=== PATIENT | female | born 1980 | race Caucasian/White ===

== ENCOUNTER 2023-12-01 05:20 | Emergency (ER) | payer OTHER, SELFPAY ==
[2023-12-01] VITALS (19 sets, daily range): BP systolic 130–184; BP diastolic 72–89; PULSE 61–88; RESP 13–24; TEMP 36.6; O2SAT 97–100
--- NOTE | 2023-12-01 05:15 | RT.EKG_ITS ---
APPROVED REPORT Exam: Resting ECG Reason for Exam: C/P Patient Location: E HR:76 bpm ECG Measurements Heart Rate 76 AXIS NM 153 P 59 QRSd 85 QRS 0 QT 405 T [id number] QTc 455 Conclusion Sinus rhythm...normal P axis, V-rate 60- [address] segment or T wave abnormalities to suggest occlusive RI
--- OUTSIDE RECORDS SUMMARY | 2023-12-01 05:35 | XMS_ITS | Clinical Summary ---
Author Organization [facility] Address [phone] [place] [address] Care Team Providers Care Director Of Nursing Name Role Phone Agnieszka Jimenes NP Primary Care Provider [phone] Social History Tobacco Use Types Packs/Day Years Used Date Smoking Tobacco: Never Assessed Education Answer Date Recorded Are you interested in more education? Not on amando e 06/16/2022 Are you concerned about learning? Not on file 06/16/2022 No 06/16/2022 No 06/16/2022 Digital Access Answer Date Recorded No 07/15/2022 No 07/15/2022 No 07/15/2022 Reliable internet access at home? Not on file 07/15/2022 Device with a working camera? Not on file Sex and Gender Information Value Date Recorded Sex Assigned at Female 12/08/2021 5:00 PM EDT Gender Identity Female 12/08/2021 5:00 PM EDT Sexual Orientation Straight 12/08/2021 5: 00 PM EDT Plan of Treatment Health Maintenance Due Date Last Done Comments Adult Td,Tdap Booster 1981 DEPRESSION SCREENING 1994 SMOKING Hx and SMOKELESS TOB ACCO SCREENING 1994 HEPATITIS C SCREENING 10/24/1999 HIV ONE-TIME SCREENING (18-6 5 YEARS) 10/24/1999 PAP SMEAR 2002 MAMMOGRAM 2021 INFLUENZA VACCINE (#1) 2023 COVID-19 VACCINE (2023-2 5 season) 2023 HIB VACCINES Aged Out No longer eligi ble based on patient's age to complete this topic MENINGOCOCCAL VACCINES (ACWY) Aged Out No longer eligible based on patient's age to complete this topic PNEUMOCOCCAL VACCINES (0-64 years) Aged Out No longer eligible based on patient's age to complete this topic Medical Devices Not on file [facility] And[facility] Silverio Personal/Family Self 1980 [address] [facility] And[place] Silverio Personal/Family Self 1980 [address] [facility] Andie Silverio Personal/Family Self [address] [place], [place] [address] Andie Silverio Personal/Family Self [address] [place] [address] [facility] [place] [address] Andie Silverio Personal/Family Self [address] [place] [address] [facility] Care Teams Director Of Nursing Relationship Specialty Start Date End Date Agnieszka Jimenes NP [address] [place] [address] PCP - General Family Medicine 12/08/21 Additional Source Comments The information contained in this document represents components of the legal health record. It is not the complete legal health record.[facility]
--- OUTSIDE RECORDS SUMMARY | 2023-12-01 05:35 | XMS_ITS | Encounter Summary ---
Author Organization [facility] Address [phone] [place] [address] Care Team Providers Care Contact Lens Molder Name Role Phone Agnieszka Jimenes DIE DESIGNER APPRENTICE Primary Care Provider [phone] Encounter Details Date Type Department Care Team ([facility] st Contact Info) Description 12/12/2021 Telephone [facility] Neurology at [address] [address] Lila Naidu [address] [place] [address] [email or web address] Social History Tobacco Use Types Packs/Day Years Used Date Smoking Tobacco: Never Assessed Sex and Gender Information Value Date Recorded Sex Assigned at Female 12/08/2021 5:00 PM EDT Gender Identity Female 12/08/2021 5:00 PM EDT Sexual Orientation Straight 12/08/2021 5: 00 PM EDT documented as of this encounter Progress Notes * Lila Naidu - 12/12/2021 12:58 PM EDT Clinical information/referral was received to Neurology and an attempt was made to reach out to thept to try and schedule. Lila Chen documented in this encounter Plan of Treatment Not on file documented as of this encounter Visit Diagnoses Not on filedocumented in this encounter Care Teams Contact Lens Molder Relationship Specialty Start Date End Date Agnieszka Jimenes NP [address] [place] [address] PCP - General Family Medicine 12/08/21 documented as of this encounter Additional Source Comments The information contained in this document represents components of the legal health record. It is not the complete legal health record.[facility]
--- OUTSIDE RECORDS SUMMARY | 2023-12-01 05:35 | XMS_ITS | Encounter Summary ---
Author Organization [facility] Address [phone] [place] [address] Care Team Providers Care Frame Runner Name Role Phone Agnieszka Jimenes NP Primary Care Provider [phone] Reason for Visit * Reason Onset Date Comments Appointment 04/18/2022 Encounter Details Date Type Department Care Team (Late st Contact Info) Description 04/18/2022 Telephone [facility] [address] [place] [address] Anayeli Edouard, RN [address] [place] [address] [email or web address] Appointment Social History Tobacco Use Types Packs/Day Years Used Date Smoking Tobacco: Never Assessed Sex and Gender Information Value Date Recorded Sex Assigned at Female 12/08/2021 5:00 PM EDT Gender Identity Female 12/08/2021 5:00 PM EDT Sexual Orientation Straight 12/08/2021 5: 00 PM EDT documented as of this encounter Progress Notes * Anayeli Franklin RN - 04/18/2022 4:13 PM EST Patient returned call. Identity confirmed. States she had appointment scheduled 04/23/22 at 10:00 butthere was no record of it in our system. Reports began with MS like symptom and was found to have white matter lesions. Has had follow up MRIs for years to monitor. 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 States that she never had known stroke symptoms. Reports MRI read stated that stroke had been previously noted, but she felt that this was not the case and it had not been noted before. Has MRI discs, verbalizes that she will bring them with her to appointment. Does not have [facility] Notes with details of MS work up, will have them sent to [facility] Neuro - fax number provided. Scheduled for appointment 06/07/2022 @ 15:00. Offered appointment on 05/10, patient declined due to scheduling conflict. Appointment details reviewed and confirmed including location, Andie verbalized understanding and was in agreement with the outlined plan. * Anayeli Franklin RN - 04/18/2022 3:49 PM EST Attempted to contact patient Andie Silverio at regarding neurology referral. There was no answer. Left voicemail requesting call back to . Please flag to this RN if callsback. Plan: Will follow up at a later date. Thank you, Anayeli Franklin BSN, RN, CNRN documented in this encounter Plan of Treatment Not on file documented as of this encounter Visit Diagnoses Not on filedocumented in this encounter Care Teams Frame Runner Relationship Specialty Start Date End Date Agnieszka Jimenes NP [address] [place] [address] PCP - General Family Medicine 12/08/21 documented as of this encounter Additional Source Comments The information contained in this document represents components of the legal health record. It is not the complete legal health record.[facility]
[2023-12-01 05:44] LABS: Abs Immature Grans 0.01 10^3/uL (0.0-0.06); Absolute Basophil Count 0.03 10^3/uL (0.0-0.2); Absolute Eosinophil Count 0.08 10^3/uL (0.0-0.7); Absolute Lymphocyte Count 2.16 10^3/uL (1.2-3.4); Absolute Monocyte Count 0.43 10^3/uL (0.1-0.8); Basophils % 0.5 %; Eosinophils % 1.3 %; HCT 41.3 % (36.0-46.0); HGB 13.6 g/dL (11.2-15.7); Immature Grans % 0.2 %; Lymphocytes % 34.2 %; MCH 30.8 pg (27.0-33.0); MCHC 32.9 % (32.0-36.0); MCV 94 fL (80-95); MPV 10.2 fL (8.0-11.0); Monocytes % 6.8 %; Platelet Count 210 10^3/uL (130-400); RBC 4.41 10^6/uL (3.93-5.22); RDW 12.2 % (11.7-14.6); RDW-SD 42.3 fL; WBC 6.31 10^3/uL (4.4-10.8)
--- NOTE | 2023-12-01 05:52 | DI.RAD_ITS ---
Exam(s) XR CHEST 2V PA LATERAL EXAM: XR CHEST 2V PA LATERAL CLINICAL HISTORY: chest pain. TECHNIQUE: 2D digital imaging was performed. COMPARISON: No exams were available for comparison FINDINGS: 2 views: Heart size is normal. The mediastinum is not widened. Lungs are clear. No infiltrates nor pleural effusions. IMPRESSION: No acute pulmonary findings. DATA REPOSITORY: RADIATION DOSE DELIVERED:
[2023-12-01 06:03] LABS: ALT 29 U/L (14-59); AST 25 U/L (15-37); Albumin 4.1 g/dL (3.4-5.0); Alkaline Phosphatase 66 U/L (46-116); Anion Gap 10.6 mmol/L (3-11); BUN 10 mg/dL (7-18); Bilirubin, Total 0.46 mg/dL (0.2-1.0); CO2 29.4 mmol/L (21.0-32.0); CREATININE 0.7 mg/dL (0.55-1.02); Chloride 103 mmol/L (98-107); Estimated GFR 110.67 (mL/min/1.73m2); Glucose 116 mg/dL (74-106); Lipase 26 U/L (16-77); Potassium 3.5 mmol/L (3.5-5.1); Sodium 143 mmol/L (136-145); Total Protein 7.8 g/dL (6.4-8.2); Troponin I 5 ng/L (<or=51)
[2023-12-01 06:09] LABS: HCG Quant, Pregnancy 1 mIU/mL (1-3)
--- NOTE | 2023-12-01 06:22 | ED.GENADUL_ITS ---
Discharge Plan Disposition Patient Disposition: Home Condition: Good Discharge Details Clinical Impression: Chest pressure, Heart palpitations Primary Care Provider: Josefina,Local ED Provider: Adelaide Mckinley Home Meds and New Rx's Prescriptions: Continued fluticasone propionate 110 mcg/actuation HFA aerosol inhaler 1 inh inhalation BID albuterol 90 mcg/actuation aerosol 180 mcg inhalation Q6H PRN PRN mecobalamin (vitamin B12) [B12 Active] 1,000 mcg tablet,chewable 1,000 mcg PO DAILY calcium phos,dibas-vitamin D3 77-400 mg-unit tablet 1 tab PO DAILY multivitamin [Daily Multi-Vitamin] Tablet 1 tab PO DAILY Discharge Instructions Instructions: Chest Pain, Adult ED, Palpitations ED Additional Instructions: Call your primary care doctor when their office is next open to schedule an appointment for within the next 72 hours. Return to the emergency department for new or worsening symptoms including new/different/worse chest discomfort, worsening palpitations, shortness of breath, lightheadedness, or if you have any other concerns. HPI General Mode of arrival: ambulatory . Date/Time Provider Initiated Documentation: 12/01/23 05:21 . Limitations to Documentation: no limitations . Information obtained by: patient . HPI Narrative: 43yo F with hx asthma presenting palpitations and chest pressure. Symptoms started around 0300 this morning. Dull constant moderate substernal chest pressure, non radiating. Not pleuritic. No chest pain. Heart 'racing' while trying to sleep, apple watch showed HR in 120's. No shortness of breath, lightheadedness, or syncope. No LE edema. [place] well earlier in the day; she was at a wedding where she had 4 glasses of wine over the course of about 6 hours with last drink around 9-10pm. Did travel about 3 hours by car for the wedding. No recent surgeries. No personal or family history of blood clots. No hormonal medications. No history of heart disease or arrhythmia. Has had palpitations in the past and worn a holter monitor with no arrhythmias identified. No family history of sudden unexpected at a young age or early cardiac disease. Otherwise in her usual state of health with no fevers, chills, rash, nausea, vomiting, abdominal pain, or other concerns. Related Data Home Medications ?Medication ?Instructions ?Recorded ?Confirmed albuterol 90 mcg/actuation aerosol 180 mcg inhalation Q6H PRN PRN 12/01/23 12/01/23 inhaler calcium phosphate,dibasic 77 1 tab PO DAILY 12/01/23 12/01/23 mg-vitamin D3 400 unit tablet fluticasone propionate 110 1 inh inhalation BID 12/01/23 12/01/23 mcg/actuation HFA aerosol inhaler mecobalamin (vitamin B12) 1,000 1,000 mcg PO DAILY 12/01/23 12/01/23 mcg chewable tablet (B12 Active) multivitamin (Daily Multi-Vitamin 1 tab PO DAILY 12/01/23 12/01/23 tablet) Allergies Allergy/AdvReac Type Severity Reaction Status Date / Time Penicillins AdvReac Severe Cardiac Verified 12/01/23 05:34 Dysrhythmia General Stated Complaint: Chest Pain JESSICA: 2 Review of Systems Narrative: see HPI Exam Narrative Exam Narrative: General: Alert, well appearing, well nourished, in no acute distress. Head: Normocephalic, atraumatic Neck: Trachea midline, ?Neck supple. ENT: ?MMM.? No oropharygeal lesions or exudate. Cardiac: ?RRR, no murmurs appreciated Resp: No respiratory distress. CTAB. Abd: ?Soft, non-distended, nontender : ?No suprapubic tenderness. No CVA tenderness. Extremities: ?No deformities.? No peripheral edema. Neurologic: GCS 15. ? Moves all extremities freely against gravity Course Vital Signs Vital signs: Vital Signs Temperature 36.6 C 12/01/23 05:22 Pulse 81 12/01/23 05:22 Respiratory Rate 24 12/01/23 05:22 Blood Pressure 184/89 H 12/01/23 05:22 Pulse Oximetry 100 12/01/23 05:22 Temperature 36.6 C 12/01/23 05:22 Temperature Source Temporal Artery Scan 12/01/23 05:22 Pulse 72 12/01/23 05:31 Pulse 75 12/01/23 05:31 Respiratory Rate 17 12/01/23 05:30 Respiratory Effort Normal, Non-Labored 12/01/23 05:27 Respiratory Depth Normal 12/01/23 05:27 Respiratory Pattern Normal 12/01/23 05:27 Blood Pressure 150/79 H 12/01/23 05:31 Blood Pressure Mean 99 12/01/23 05:31 Blood Pressure Position Supine 12/01/23 05:22 Pulse Oximetry 99 12/01/23 05:31 Oxygen Delivery Method Room Air 12/01/23 05:22 Oxygen Flow Rate 0 12/01/23 05:22 Pain Level 3 12/01/23 05:22 Lab/Test Results Lab/Test Results: Laboratory Tests Range/Units 12/01/23 05:27 WBC (4.4-10.8) 10^3/uL 6.31 RBC (3.93-5.22) 10^6/uL 4.41 Hgb (11.2-15.7) g/dL 13.6 Hct (36.0-46.0) % 41.3 MCV (80-95) fL 94 MCH (27.0-33.0) pg 30.8 MCHC (32.0-36.0) % 32.9 RDW (11.7-14.6) % 12.2 Plt Count (130-400) 10^3/uL 210 MPV (8.0-11.0) fL 10.2 Immature Gran % % 0.2 Neutrophils % % 57.0 Lymphocytes % % 34.2 Monocytes % % 6.8 Eosinophils % % 1.3 Basophils % % 0.5 Nucleated RBC % (0.0-0.3) % 0.0 Absolute Neutrophils (1.2-6.7) 10^3/uL 3.60 Absolute Lymphocytes (1.2-3.4) 10^3/uL 2.16 Absolute Monocytes (0.1-0.8) 10^3/uL 0.43 Absolute Eosinophils (0.0-0.7) 10^3/uL 0.08 Absolute Basophils (0.0-0.2) 10^3/uL 0.03 Sodium (136-145) mmol/L 143 Potassium (3.5-5.1) mmol/L 3.5 Chloride (98-107) mmol/L 103 Carbon Dioxide (21.0-32.0) mmol/L 29.4 Anion Gap (3-11) mmol/L 10.6 BUN (7-18) mg/dL 10 Creatinine (0.55-1.02) mg/dL 0.7 Est GFR (CKD-EPI 2020) (mL/min/1.73m2) 110.67 Glucose (74-106) mg/dL 116 H Calcium (8.5-10.1) mg/dL 9.0 Magnesium (1.8-2.4) mg/dL 2.0 Total Bilirubin (0.2-1.0) mg/dL 0.46 AST (15-37) U/L 25 ALT (14-59) U/L 29 Alkaline Phosphatase (46-116) U/L 66 Troponin I (<or=51) ng/L 5 Total Protein (6.4-8.2) g/dL 7.8 Albumin (3.4-5.0) g/dL 4.1 Lipase (16-77) U/L 26 Beta HCG, Quant (1-3) mIU/mL 1 Medical Decision Making 43yo F with hx asthma presenting palpitations and chest pressure since around 0300. Dull constant moderate substernal chest pressure, non radiating, with heart 'racing' while trying to sleep, apple watch showed HR in 120's. Did have 4 glasses of wine earlier in the evening. Hypertensive on arrival, vital signs otherwise reassuring. Benign physical exam, HR regular, lungs CTAB. No wheeze or increased WOB to suggest asthma exacerbation. Symptoms may be 2/t to ETOH; will evaluate for life threatening causes with EKG, CXR, labs. Offered tylenol for chest discomfort; pt declined. EKG on arrival SR, appropriate intervals, no ST segment or T wave abnormalities to suggest occlusive LA. CXR independently reviewed, no focal pneumonia or pneumothorax on my view, agree with radiology read below. Labs reviewed as below, CBC reassuring with no leukocytosis or anemia, CMP normal with no electrolyte abnormalities, lipase normal (unlikely pancreatitis), dimer normal (would not further pursue pulmonary embolism with CT scan), HS troponin negative x 2. On reassessment patient remains well appearing. Vital signs reassuring, normotensive. HEART score 0. Low suspicion for ACS. Appropriate for outpatient followup with PCP. Patient would like to be discharged home which is reasonable. Discharge instructions and return precautions were reviewed with patient who verbalized understanding. All questions were answered and she is in full agreement with the plan. Imaging Data Radiologic Study: Imaging: X-Ray Radiologist's impression: IMPRESSION: No acute findings to explain reported symptoms. Lab Data Lab results reviewed: Yes I reviewed the patient's lab results. Labs: Laboratory Tests Range/Units 12/01/23 05:27 WBC (4.4-10.8) 10^3/uL 6.31 RBC (3.93-5.22) 10^6/uL 4.41 Hgb (11.2-15.7) g/dL 13.6 Hct (36.0-46.0) % 41.3 MCV (80-95) fL 94 MCH (27.0-33.0) pg 30.8 MCHC (32.0-36.0) % 32.9 RDW (11.7-14.6) % 12.2 Plt Count (130-400) 10^3/uL 210 MPV (8.0-11.0) fL 10.2 Immature Gran % % 0.2 Neutrophils % % 57.0 Lymphocytes % % 34.2 Monocytes % % 6.8 Eosinophils % % 1.3 Basophils % % 0.5 Nucleated RBC % (0.0-0.3) % 0.0 Absolute Neutrophils (1.2-6.7) 10^3/uL 3.60 Absolute Lymphocytes (1.2-3.4) 10^3/uL 2.16 Absolute Monocytes (0.1-0.8) 10^3/uL 0.43 Absolute Eosinophils (0.0-0.7) 10^3/uL 0.08 Absolute Basophils (0.0-0.2) 10^3/uL 0.03 D-Dimer (<500) ng/mlFEU 137 Sodium (136-145) mmol/L 143 Potassium (3.5-5.1) mmol/L 3.5 Chloride (98-107) mmol/L 103 Carbon Dioxide (21.0-32.0) mmol/L 29.4 Anion Gap (3-11) mmol/L 10.6 BUN (7-18) mg/dL 10 Creatinine (0.55-1.02) mg/dL 0.7 Est GFR (CKD-EPI 2020) (mL/min/1.73m2) 110.67 Glucose (74-106) mg/dL 116 H Calcium (8.5-10.1) mg/dL 9.0 Magnesium (1.8-2.4) mg/dL 2.0 Total Bilirubin (0.2-1.0) mg/dL 0.46 AST (15-37) U/L 25 ALT (14-59) U/L 29 Alkaline Phosphatase (46-116) U/L 66 Troponin I (<or=51) ng/L 5 Total Protein (6.4-8.2) g/dL 7.8 Albumin (3.4-5.0) g/dL 4.1 Lipase (16-77) U/L 26 Beta HCG, Quant (1-3) mIU/mL 1 Quality:SDOH Health Related Social Needs: No Data to Display PFSH All Active Problems (Updated 12/01/23 @ 07:13 by dAelaide Mckinley MD) Heart palpitations (Acute) Chest pressure (Acute) Social History Smoking/Tobacco Use Status: Never Smoking risk assessment performed?: Yes Alcohol Intake: current Alcohol Intake frequency: a few times a month Drug use: Never Substance use type: does not use Housing: house Do you feel safe at home: Yes Do you feel safe in your relationship?: Yes PAWSS Have you Been Recently Intoxicated or Drunk Within the Last 30 days?: Yes Have you Ever Experienced Previous Episodes of Alcohol Withdrawal?: No Have you ever Experienced Withdrawal Seizures?: No Have you ever Experienced Delirium Tremens(DT)s?: No Have you ever undergone Alcohol Rehabilitation Treatment (i.e, inpt ot outpatient treatment programs)?: No Have you ever Experienced Blackouts?: No Have you ever Combined Alcohol with other Downers within the last 90 days?: No Have you ever Combined Alcohol with any other Substance of Abuse during the last 90 days?: No Positive Blood Alcohol level on Presentation? [PCS.BAL]: No Evidence of Increased Autonomic Activity (i.e. HR>120, tremor, sweating, agitation, nausea)?: No Result: 1
[2023-12-01 06:23] LABS: D-Dimer 137 ng/mlFEU (<500)
[2023-12-01 06:51] LABS: Troponin I 4 ng/L (<or=51)
--- NOTE | 2023-12-01 06:56 | DI.VRAD_ITS ---
PROCEDURE INFORMATION: Exam: XR Chest Exam date and time: 12/01/2023 5:47 AM Age: 43 years old Clinical indication: Chest pressure; Patient HX: Chest pain TECHNIQUE: Imaging protocol: Radiologic exam of the chest. Views: 2 views. COMPARISON: No relevant prior studies available. FINDINGS: Lungs: No focal consolidation seen. Pleural spaces: No large pleural effusion seen. Heart/Mediastinum: No cardiomegaly. Bones/joints: No acute abnormality. IMPRESSION: No acute findings to explain reported symptoms. Dictated and Authenticated by: Bev Vasquez MD. Ordering:SHANIQUE Bryson MD
== END 2023-12-01 07:24 | disposition home or self-care (01) ==
PROVIDERS: Emergency Provider Student in an Organized Health Care Education/Training Program
DX: R07.89 Other chest pain (principal); R00.2 Palpitations
CPT/HCPCS: 36415; 80053; 83690; 93005; 99285; 71046; 83735; 84484; 84702; 85025; 85379; 93010; 99284